=== PATIENT | male | born 2000 | race African-American/Black ===

== ENCOUNTER 2018-08-06 15:34 | Emergency (ER) | payer SELFPAY ==
[2018-08-06 16:13] VITALS: BP 111/74; PULSE 112; RESP 18; TEMP 98.7; O2SAT 99
--- NOTE | 2018-08-06 17:08 | C.PDOC ---
History Of Present Illness 17 y/o male presents to ED complaining of left ankle pain since 4 days ago. Patient states he was playing basketball when he tripped and landed on his left ankle, twisting it. States he is unable to bear weight since then. Patient is taking 200 -400 mg motrin 1-2 times per day with no relief of pain. Also states he has been applying cold compresses but ankle is still swollen with no improvement. Denies any other injuries, numbness, or tingling. Time Seen by Provider: 08/06/18 16:49 Chief Complaint (Nursing): Lower Extremity Problem/Injury History Per: Patient History/Exam Limitations: no limitations Onset/Duration Of Symptoms: Days (5) Current Symptoms Are (Timing): Still Present Severity: Moderate - Ankle/Foot Description Of Injury: Twisted Alleviating Factor(s): Ice Therapy, Elevation Past Medical History Reviewed: Historical Data, Nursing Documentation, Vital Signs Vital Signs: Last Vital Signs Temp 98.7 F 08/06/18 16:11 Pulse 112 H 08/06/18 16:11 Resp 18 08/06/18 16:11 BP 111/74 08/06/18 16:11 Pulse Ox 99 08/06/18 16:11 - Medical History PMH: No Chronic Diseases Family History: States: No Known Family Hx - Social History Hx Tobacco Use: No Hx Alcohol Use: No Hx Substance Use: No Review Of Systems Constitutional: Negative for: Fever Musculoskeletal: Positive for: Other (ankle pain left) Skin: Positive for: Bruising Neurological: Negative for: Weakness, Numbness Physical Exam - Physical Exam Appears: Non-toxic, No Acute Distress Skin: Warm, Dry, Ecchymosis (lateral left ankle proximal to malleolus has bruising) Extremity: Normal ROM, Tenderness (lateral malleolus), Swelling (lateral left malleolus with bruising, see skin) Pulses: Left Dorsalis Pedis: Normal Neurological/Psych: Oriented x3, Normal Speech, Normal Cognition, Normal Motor, Normal Sensation ED Course And Treatment O2 Sat by Pulse Oximetry: 99 (RA) Pulse Ox Interpretation: Normal - Other Rad Left ankle x-ray X-Ray: Read By Radiologist Interpretation: FINDINGS: BONES: Normal. No fracture. JOINTS: Normal. No osteoarthritis. Ankle mortise maintained. Talar dome intact. SOFT TISSUES: Lateral soft tissue swelling. OTHER FINDINGS: None. IMPRESSION: No fracture. Lateral soft tissue swelling. Orthopedic Time Performed: 17:40 Time Out: Side verified, Site verified Procedure: Splint Type: Long, Posterior Location: Left, Leg Consent obtained: Verbal Performed by: Mid-level Provider (done by cp, checked by me) Diagnosis: Sprain Capillary refill: Normal Distal Sensation: Normal Distal Motor Function: Normal Capillary Refill: Normal Distal Sensation: Normal Distal Motor Function: Normal Medical Decision Making Medical Decision Making: Plan: --Tylenol --Left Ankle X-Ray No fracture noted on x-ray. On re-evaluation, patient is resting comfortably, and is in no acute distress. Patient will be discharged home with applied posterior splint and crutches, and is instructed to follow up with podiatry within 1-2 days for further evaluation. twisted left ankle unable to bear weight-= no fx noted on xray., will apply posterior splint and give crutches with podiatry f/u Disposition Counseled Patient/Family Regarding: Studies Performed, Diagnosis, Need For Followup, Rx Given - Disposition Referrals: Podiatry Clinic [Outside] [facility] [Outside] Disposition: HOME/ ROUTINE Disposition Time: 18:25 Condition: GOOD Additional Instructions: No weight bearing on left foot- use crutches until seen by podiatry. Call either number listed and make soonest appointment. Elevate foot when possible. Keep splint clean and dry-cover with plastic when bathing. Ibuprofen 600 mg by mouth every 6 hours for paikn. Instructions: Ankle Sprain (DC) Forms: [facility] (Kosovan), General Discharge Instructions - Clinical Impression Clinical Impression: Left ankle sprain - PA / [employer] / Resident Statement MD/DO has reviewed & agrees with the documentation as recorded. - Scribe Statement The provider has reviewed the documentation as recorded by the Scribe Kitty Askew All medical record entries made by the Scribe were at my direction and personally dictated by me. I have reviewed the chart and agree that the record accurately reflects my personal performance of the history, physical exam, medical decision making, and the department course for this patient. I have also personally directed, reviewed, and agree with the discharge instructions and disposition.
--- NOTE | 2018-08-06 18:15 | RAD ---
Date of service: 08/06/2018 PROCEDURE: Left Ankle Radiographs. HISTORY: swelling pain lateral malleoluus bruising COMPARISON: None available. FINDINGS: BONES: Normal. No fracture. JOINTS: Normal. No osteoarthritis. Ankle mortise maintained. Talar dome intact SOFT TISSUES: Lateral soft tissue swelling. OTHER FINDINGS: None. IMPRESSION: No fracture. Lateral soft tissue swelling.
== END 2018-08-06 18:32 | disposition home or self-care (01) ==
LOC: C.ER 15:34
DX: S93.402A Sprain of unspecified ligament of left ankle, initial encounter (principal); W01.0XXA Fall on same level from slipping, tripping and stumbling without subsequent striking against object, initial encounter; Y93.67 Activity, basketball